=== PATIENT | female | born 1985 | race Caucasian/White ===

== ENCOUNTER 2018-03-09 20:28 | Emergency (ER) | END 2018-03-09 23:40 | disposition home or self-care (01) ==

== ENCOUNTER 2018-08-18 12:43 | Outpatient (CLI) | payer MEDICAID ==
[~2018-08-18] VITALS: Ht 157.5 cm; Wt 95.0 kg
[~2018-08-18 12:43] MED LIST: CEPH500C PO
[2018-08-18 13:00] VITALS: BP 109/68; PULSE 93; Ht 157.5 cm; Wt 95.0 kg
[2018-08-18] MEDS ORDERED: PNV11TAB PO (13:03)
--- NOTE | 2018-08-18 15:36 | TRIAGE ---
OB Triage Datetime Report Generated by CPN: 08/18/2018 15:36 Datetime: 08/18/2018 14:41 Stage of : OB Triage Datetime: 08/18/2018 14:00 Labor Evaluation Frequency: 9-10 Monitor Mode: External Duration (sec)2399: 50-70 Pattern: Normal: <= 5 Contractions in 10 Minutes Resting Tone [place]: Relaxed Heart Rate FHR Baseline Rate: 135 Monitor Mode: External US Variability: Moderate 6-25 bpm Accelerations: 10X10 Decelerations: None Category: Category I Pain Assessment Pain Scale: 4 Pain Presence: Intermittent Pain Type: Cramping Pain Location: Perineum Pain Goal: 3 Pain Relief Measures: Comfort Measures Datetime: 08/18/2018 12:56 Stage of : OB Triage Assessment Type: Triage Maternal Assessment Level of Consciousness: Fully Conscious DTR's/Clonus: DTRs 2+; No Clonus Headache: Denies Blurred Vision: No Respiratory Effort: Unlabored; Regular Rhythm; Equal Expansion Breath Sounds, Left: Clear and Equal Breath Sounds, Right: Clear and Equal Nausea/Vomiting: Denies RUQ Epigastric Pain: Denies Facial Edema: None Temperature Route: Axillary Fall Risk Assessment History of Falling: (0) No Secondary Diagnosis: (0) No Ambulatory Aid: (0) Bedrest/Nurse Assist IV Therapy: (0) No Gait: (0) Normal/Bedrest/Immobile Mental Status: (0) Oriented to Own Ability Fall Score: 0 Fall Risk Score Definition: No Risk: No action required Labor Evaluation Frequency: 0 Monitor Mode: External Pattern: Normal: <= 5 Contractions in 10 Minutes Resting Tone [place]: Relaxed Heart Rate FHR Baseline Rate: 135 Monitor Mode: External US Variability: Moderate 6-25 bpm Decelerations: None Category: Category I Pain Assessment Pain Scale: 4 Pain Presence: Intermittent Pain Type: Cramping Pain Location: Abdomen Pain Goal: 3 Pain Relief Measures: Comfort Measures Datetime: 08/18/2018 12:55 Time of Arrival: 08/18/2018 12:40 EGA: 35.5 Arrived By: Ambulatory Arrived From: Office Chief Complaint: referred from [facility] to r/o labor, denies bleeding, leaking, but has occas uc's Movement: Present Contractions: Occasional Rupture of Membranes: Denies Vaginal Bleeding: None Vaginal Discharge: Present Recent Sexual Intercouse: Denies Abdominal Trauma: Not Applicable Patient Complaints: Cramping Time Provider Notified: 08/18/2018 14:41 Provider Notified: PATRICIO Initial Plan: monitor, BPP, EFW, U/A C_S
--- NOTE | 2018-08-21 00:07 | PN ---
Triage Information Date/Time late entry for serice rendered on 08/18/18 Reason for visit: labor Weeks of Gestation 35w5d /Para A1 Diabetes: none Hypertention: none Additional information X2 previous c/s referred from clinic for R/O PTL Objective Vital Signs Date Temp Pulse Resp B/P (MAP) Pulse Ox O2 O2 Flow FiO2 Time Delivery Rate 08/18/18 98.0 93 109/68 13:00 (82) Heart Rate: 140's Contractions: None Results/Medications Imaging Results BPP 8/8 FREIDA 16.9 EFW 3016 65% Disposition: Discharge Assessment/Plan A IUP 35w5d No PTL P discharge home with routine labor instructions RTH prn NADINE CURRY MD Aug 21, 2018 00:07
== END 2018-08-18 15:00 | disposition home or self-care (01) ==
LOC: OBT 12:43 → L-D 12:43 → OBT 15:00
PROVIDERS: ATTEND Obstetrics & Gynecology
DX: O60.03 Preterm labor without delivery, third trimester (principal); Z3A.35 35 weeks gestation of pregnancy
CPT/HCPCS: 76815; 76818; 81001; 87086; Z7500; G0463

== ENCOUNTER 2018-09-04 12:41 | Inpatient (IN) | payer MEDICAID ==
[~2018-09-04] VITALS: Ht 157.5 cm; Wt 96.3 kg
[~2018-09-04 12:41] MED LIST changes: -CEPH500C PO; +PNV11TAB PO
[2018-09-04 13:27] VITALS: BP 108/64; PULSE 88; Ht 157.5 cm; Wt 96.3 kg
[2018-09-04] MEDS ORDERED: LACTATED RINGER'S 1,000 ML IV ONE (15:51)
[2018-09-04] MEDS ORDERED: LACTATED RINGER'S 1,000 ML IV SCH (15:51)
--- NOTE | 2018-09-04 15:51 | PREAC ---
Date/Time of Note Date/Time of Note DATE: 09/04/18 TIME: 15:50 Anesthesia Eval and Record Evaluation Time Pre-Procedure Interview DATE: 09/04/18 TIME: 15:50 Age 33 Sex female NPO: 8 hrs Preoperative diagnosis intrauterine Planned procedure repeat c section Past Medical History Past Medical History: Includes GI: Obesity : : (4), Para: (2), Gestational age: (38+) Surgery & Anesthesia Issues No known issue Meds Anticoagulation: No Beta Aurelio within 24 hr: No Reason Beta Aurelio not given: Pt. not on B-Aurelio Reported Medications [id number] ( ) 1 Each Tablet, 1 TAB PO DAILY, TAB 08/18/18 Meds reviewed: Yes Allergies Coded Allergies: No Known Drug Allergies (Verified Allergy, Unknown, 03/09/18) Allergies Reviewed: Yes Labs/Studies Labs Reviewed: Reviewed by anesthesiologist test: N/A Pre-procedure Exam Last vitals Vital Signs Date Temp Pulse Resp B/P (MAP) Pulse Ox O2 O2 Flow FiO2 Time Delivery Rate 09/04/18 98.3 88 108/64 13:27 (79) Airway: Adequate mouth opening, Adequate thyromental dist Mallampati: Mallampati II Teeth: Normal Lung: Normal Heart: Normal ASA Physical Status ASA physical status: 2 Emergency: None Planned Anesthetic Neuraxial: Spinal Planned Pain Management Sub-arachniod narcotics, Parenteral pain med Pre-operative Attestations Prior to commencing anesthesia and surgery, the patient was re-evaluated, there was verification of: *The patient's identity *The results of appropriate recent lab work and preoperative vital signs *The above evaluation not changing prior to induction *Anesthetic plan, risk benefits, alternative and complications discussed with patient/family; questions answered; patient/family understands, accepts and wishes to proceed. RIO VICENTE MD September 04, 2018 15:51
[2018-09-04] MEDS ORDERED: CARBOPROST 250 MCG INJ IM PRN ×2 (16:00→19:00)
[2018-09-04] MEDS ORDERED: OXYTOCIN 30 UNITS/LR 500 ML IV PRN ×2 (16:00→19:00)
[2018-09-04] MEDS ORDERED: CITRIC ACID/NA CITRATE 30 ML CUP PO ONE (16:00)
[2018-09-04] MEDS ORDERED: METOCLOPRAMIDE 10 MG INJ IV ONE (16:00)
[2018-09-04] MEDS ORDERED: MISOPROSTOL 200 MCG TAB PR PRN ×2 (16:00→19:00)
[2018-09-04] MEDS ORDERED: FAMOTIDINE 20 MG INJ IV ONE (16:00)
[2018-09-04] MEDS ORDERED: METHYLERGONOVINE 0.2 MG INJ IM PRN ×2 (16:00→19:00)
[2018-09-04] MEDS ORDERED: AMPICILLIN 2 GM/NS (PMX) 100 ML ONE (16:28)
[2018-09-04] MEDS ORDERED: CEFAZOLIN 2 GM/50 ML (PMX) 50 ML IVPB ONE ×2 (16:28→16:30)
[2018-09-04] MEDS ORDERED: AMPICILLIN 2 GM/NS (PMX) 100 ML IVPB ONE (16:30)
--- NOTE | 2018-09-04 16:57 | PREOPHP ---
DATE OF ADMISSION: 09/04/2018 HISTORY OF PRESENT ILLNESS: Ms. Shani Huang is a 33-year-old, 4, para 2, EDC 09/17/2018, intrauterine at 38 weeks and 1 day gestational age, presented to triage complaining of uter ine contractions since last night. Pain scale is 7/10. She has a history of 2 previous C-sections, desires elective repeat delivery with tubal sterilization. She denies any vaginal bleeding or discharge. Her care took place with Dr. Coronado. PAST MEDICAL HISTORY: None. MEDICATIONS: vitamins. PAST SURGICAL HISTORY: x2 previous section. OBSTETRIC HISTORY: x2 previous section. GYNECOLOGIC HISTORY: 12, regular 3 to 4 days. Denies any sexually transmitted infections. Sexually active with 1 partner. SOCIAL HISTORY: Denies any smoking, drugs or alcohol. FAMILY HISTORY: None. REVIEW OF SYSTEMS: All within normal except history of present illness. PHYSICAL EXAMINATION: HEENT: Within normal. LUNGS: CTA bilateral. CARDIOVASCULAR: S1, S2, regular rhythm. ABDOMEN: Gravid, nontender. Negative CVA bilateral. EXTREMITIES: No calf tenderness. PELVIC: Vaginal exam 1 to 2 cm dilated, 50% effaced, -2 station, intact. heart tracing catego ry 1. [place] regular contractions. ASSESSMENT: Intrauterine at 38 weeks and 1 day gestational age, in labor; previous C-secti on x2, desires elective repeat delivery with bilateral tubal sterilization. PLAN: Consent for a repeat delivery with bilateral tubal sterilization. Risks, benefits an d alternatives explained. All questions were answered. Dictated By: KAMRYN CRISOSTOMO/KENNY Conf#: [id number] DID#: [id number]
[2018-09-04] MEDS ORDERED: morphine SULFATE/PF (10 MG/10 ML) INJ ONE (17:16)
[2018-09-04] MEDS ORDERED: ONDANSETRON 4 MG INJ ONE (17:29)
[2018-09-04] MEDS ORDERED: PHENYLephrine (100 MCG/ML) 10ML SYG ONE (17:29)
[2018-09-04] MEDS ORDERED: EPHEDrine 25 MG/5 ML SYG ONE (17:56)
[2018-09-04] MEDS ORDERED: OXYTOCIN 30 UNITS/LR 500 ML IV ONE (17:56)
[2018-09-04] MEDS ORDERED: KETOROLAC 30 MG INJ IV PRN (18:00)
[2018-09-04] MEDS ORDERED: FENTAnyl 50 MCG/ML VIAL IV PRN ×3 (18:00)
[2018-09-04] MEDS ORDERED: DIPHENHYDRAMINE 50 MG INJ IV PRN ×2 (18:00→19:00)
[2018-09-04] MEDS ORDERED: ONDANSETRON 4 MG INJ IV PRN ×2 (18:00→19:00)
[2018-09-04] MEDS ORDERED: HYDROmorphONE 1 MG/5 ML IV SYRINGE IV PRN ×3 (18:00)
[2018-09-04] MEDS ORDERED: EPHEDrine SULFATE 50 MG/5 ML SYG IV PRN (18:00)
[2018-09-04] MEDS ORDERED: PROCHLORPERAZINE 10 MG INJ IV PRN (18:00)
[2018-09-04] MEDS ORDERED: MEPERIDINE 25 MG INJ IV PRN (18:00)
[2018-09-04] MEDS ORDERED: MIDAZOLAM 1 MG/ML 2 ML INJ ONE (18:02)
--- NOTE | 2018-09-04 18:31 | OPPN ---
Date/Time of Note Date/Time of Note DATE: 09/04/18 TIME: 18:25 Operative Report Planned Procedure Procedure date September 04, 2018 Procedure(s) Repeat low transverse CD with bilateral tubal ligation (randolph method) Performed by see signature line Broth Mixer: DENILSON HENRY M.D. 2nd Broth Mixer none Anesthesiologist: RIO VICENTE MD Pre-procedure diagnosis Intrauterine at 38 weeks and 1 day gestational age, in labor; previous x2, desires elective repeat delivery with bilateral tubal sterilization [id number] Anesthesia Type: Irryy8a spinal Post-Procedure Post-procedure diagnosis same Findings a viable male 8/9 weight 8lb 14 oz. normal uterus tubes and ovaries Estimated Blood Loss: 500 - 600 mls (500) Specimen(s) portion of right and left fallopian tube Grafts/Implant(s) none Complication(s) none KAMRYN HOLLIDAY MD September 04, 2018 18:31
--- NOTE | 2018-09-04 18:37 | PAC ---
Date/Time of Note Date/Time of Note DATE: 09/04/18 TIME: 18:36 Post-Anesthesia Notes Post-Anesthesia Note Last documented vital signs Vital Signs Date Temp Pulse Resp B/P (MAP) Pulse Ox O2 O2 Flow FiO2 Time Delivery Rate 09/04/18 98.3 88 108/64 13:27 (79) Activity: WNL Respiratory function: WNL Cardiovascular function: WNL Mental status: Baseline Pain reasonably controlled: Yes Hydration appropriate: Yes Nausea/Vomiting absent: Yes Comments BP: 105/60 HR: 76 RR: 15 T: 97.3 SaO2: 98% RIO VICENTE MD September 04, 2018 18:37
[2018-09-04] MEDS: OXYTOCIN 30 UNITS/LR 500 ML IV SCH (18:38)
[2018-09-04] MEDS ORDERED: NACL 0.9% 3 ML SYG IV SCH (19:00)
[2018-09-04] MEDS ORDERED: ZOLPIDEM 5 MG TAB PO PRN (19:00)
[2018-09-04] MEDS ORDERED: LANOLIN HPA 1 PKT TOP PRN (19:00)
[2018-09-04] MEDS ORDERED: HYDROmorphONE 0.5 MG/0.5 ML SYG IV PRN ×2 (19:00)
[2018-09-04] MEDS ORDERED: NALOXONE (0.4 MG/ML) INJ IV PRN (19:00)
[2018-09-04] MEDS ORDERED: OXYCODONE/ACETAMINOPHEN (5/325) TAB PO PRN (19:00)
[2018-09-04 20:50] VITALS: BP 105/58; PULSE 74; RESP 18
[2018-09-04] MEDS: CEFAZOLIN 2 GM/50 ML (PMX) 50 ML IVPB SCH (23:35)
[2018-09-04 23:40] VITALS: BP 107/60; PULSE 79; RESP 18
[2018-09-05] MEDS: OXYTOCIN 30 UNITS/LR 500 ML IV SCH (01:58)
[2018-09-05 03:40] VITALS: BP 99/58; PULSE 82; RESP 18
[2018-09-05] MEDS: CEFAZOLIN 2 GM/50 ML (PMX) 50 ML IVPB SCH ×2 (06:53→14:26)
[2018-09-05 08:30] VITALS: BP 97/57; PULSE 82; RESP 18
[2018-09-05] MEDS: KETOROLAC 30 MG INJ IV PRN ×2 (08:31→17:12)
--- NOTE | 2018-09-05 09:28 | OPR ---
DATE OF OPERATION: 09/05/2018 PREOPERATIVE DIAGNOSIS: Intrauterine at 38 weeks gestational age, in labor, previous C-sec tion x2, desires elective repeat delivery with tubal sterilization. POSTOPERATIVE DIAGNOSES: Intrauterine at 38 weeks gestational age, in labor, previous C-se ction x2, desires elective repeat delivery with tubal sterilization. OPERATION PERFORMED: Repeat low transverse delivery with bilateral tubal ligation, [place] method. SURGEON: Rio Holliday M.D. FLEXIBLE MACHINING SYSTEM MACHINIST: Dr. Pope. ANESTHESIA: Spinal. ESTIMATED BLOOD LOSS: 500 mL. SPECIMEN: Portion of the right and left fallopian tube. FINDINGS: A viable male, 8 and 9 respectively at 1 and 5 minutes, weight 8 pounds 14 ounces. Normal uterus, tubes and ovaries. DESCRIPTION OF PROCEDURE: After explaining the risks, benefits and alternatives, the patient and con sent signed in chart, the patient was taken to the operating room where spinal anesthesia was found t o be adequate. She was then prepared and draped in normal sterile fashion in dorsal supine position with a leftward tilt. A Pfannenstiel skin incision was made with a scalpel and carried to the underl kourtney fascia. The fascia was incised in midline, incision was extended laterally with Sage scissors. The superior aspect of the fascial incision was grasped with curved clamps, elevated and the underly ing rectus muscles dissected off bluntly. Attention was then turned to the inferior aspect of the in cision which in similar fashion was grasped, tented up with curved clamps and the rectus muscles diss ected off bluntly. The rectus muscle was in midline, peritoneum identified, tented up angelica ply with scissors. The peritoneal incision was extended superiorly inferiorly with good visualizatio n of bladder. The bladder blade was inserted and the vesicouterine identified, grasped with pickups and entered sharply with Metzenbaum scissors. This incision was extended laterally. Bladder flap cr eated digitally. The bladder blade was reinserted and lower segment incised in transverse fashion wi th a scalpel. The uterine incision was extended laterally. The bladder blade was removed and the in yany's head delivered atraumatically. The nose and mouth were suctioned and cord clamped and cut. T he infant was handed off to awaiting cone examiner. The placenta was then removed. The uterus was ex teriorized and cleared of all clots and debris. The uterine incision was repaired with 1-0 chromic i n a running locked fashion. A second layer of same suture was used for imbrication obtaining excelle nt hemostasis. At this point, the left fallopian tube was grasped with Jen, a 3 cm segment of th e tube was ligated with a free tie of plain gut and excised. Good hemostasis was noted. Similarly, the other fallopian tube was ligated and good hemostasis was noted. The uterus was returned to the a bdomen. The gutters were cleared of all clots. Interceed was applied to the anterior uterus. The p eritoneum and rectus abdominis muscles were reapproximated with 3-0 Vicryl in an interrupted fashion. The fascia was reapproximated with 0 Vicryl in a running fashion. The subcutaneous tissue was reap proximated with 2-0 plain gut in a running fashion. The skin was closed with absorbable ty. Th e patient tolerated procedure well. All counts were correct. The patient was taken to recovery in s table condition. Dictated By: RIO CRISOSTOMO/KENNY Conf#: [id number] DID#: [id number] CC: RIO HOLLIDAY MD;*EndCC*
[2018-09-05 16:00] VITALS: BP 95/50; PULSE 84; RESP 16
[2018-09-05] MEDS ORDERED: IBUPROFEN 600 MG TAB PO SCH (18:00)
--- NOTE | 2018-09-05 18:15 | QN ---
Documentation Comment progress note pod 1 patient seen and evaluated no complaints vs stable afebrile ab dressing clean/dry no distention extremity no edema no calf tenderness a/ sp cd with btl pod 1 stable afebrile p/ iron supplement encourage ambulation KAMRYN HOLLIDAY MD September 05, 2018 18:15
[2018-09-05 19:35] VITALS: BP 102/59; PULSE 86; RESP 18
[2018-09-05] MEDS: FERROUS SULFATE (EC) 325 MG TAB PO SCH (21:09)
[2018-09-06] MEDS: OXYCODONE/ACETAMINOPHEN (5/325) TAB PO PRN ×4 (03:37→21:22)
[2018-09-06 04:35] VITALS: BP 100/60; PULSE 82; RESP 18
[2018-09-06] MEDS: FERROUS SULFATE (EC) 325 MG TAB PO SCH ×2 (08:13→21:20)
[2018-09-06 08:20] VITALS: BP 85/55; PULSE 74; RESP 16
[2018-09-06 16:30] VITALS: BP 95/59; PULSE 67; RESP 17
[2018-09-06 20:45] VITALS: BP 101/53; PULSE 80; RESP 18
--- NOTE | 2018-09-06 22:53 | QN ---
Documentation Comment progress note pod 2 patient seen and evaluated no complaints vs stable afebrile ab c/d/i no distention extremity no edema no calf tenderness a/ sp cd with btl pod 2 stable afebrile p/discharge home tomorrow KAMRYN HOLLIDAY MD September 06, 2018 22:53
--- NOTE | 2018-09-06 22:54 | PD.PPDC ---
SALES REPRESENTATIVE ADDING MACHINES Discharge Instruction Condition Mmclh2Ph Patient Condition: Oogco3l Fair Diet Cyjqk8Is Diet: Vkbpi2d Resume Regular Diet Activity/Restrictions Tjiaw3Fi Activity: Mfqno3w Normal Activity May Shower Hvvma0Vq Restrictions: Aurzo6h No Exercising No Lifting No Driving No Sexual Activity Nothing in the Vagina No Doran No Tampons, douche Follow-up Follow-up with Physician: 2, Week/Weeks Return to clinic for Radba4Bl TANDEM OPERATOR Instructions: Ycqjf5f Fever greater than 101 Chills Worsening abdominal pain Excessive Vaginal Bleeding More than 2 pads per hour Unable to tolerate diet [id number] OB Instructions: Jcedt0m Breast Tenderness Depression Blurried Vision Headache Eayac6Ty Surgical Instructions: Dqaak4i Incisional Drainage Incisional Redness KAMRYN HOLLIDAY MD September 06, 2018 22:54
--- NOTE | 2018-09-07 00:14 | DS ---
DATE OF ADMISSION: 09/04/2018 DATE OF DISCHARGE: 09/07/2018 PRIMARY DIAGNOSIS: Intrauterine at 38 weeks gestational age in labor, previous se ction x2, desires elective repeat delivery with tubal sterilization. PROCEDURE: Repeat low-transverse delivery with bilateral tubal ligation, Lisha method. CONDITION ON DISCHARGE: Stable. ACTIVITY: None per vagina, no heavy lifting x6 weeks. DIET: Regular. MEDICATIONS ON DISCHARGE: 1. Motrin. 2. Iron. 3. Colace. DISCHARGE SUMMARY: Ms. Shani Huang underwent a repeat low-transverse delivery with bilat eral tubal ligation on 09/04/2018. She had a viable male, 8 and 9 respectively at 1 and 5 venita cally, weight of 8 pounds, 14 ounces. She had an uneventful postop day one and two. She was discharge d on postop day three. Her incision is clean, dry, and intact. She is ambulating, tolerating diet, positive flatulence, positive bowel movement. She will follow up in the clinic in two weeks for post /postop care. Dictated By: KAMRYN HOLLIDAY MD ME/NTS Conf#: [id number] DID#: [id number] CC: PATRICIA RENTERIA MD; TELLO STOKES MD;*EndCC*
[2018-09-07 04:00] VITALS: BP 99/62; PULSE 70; RESP 17
[2018-09-07] MEDS: OXYCODONE/ACETAMINOPHEN (5/325) TAB PO PRN ×2 (04:06→09:56)
[2018-09-07 08:30] VITALS: BP 99/64; PULSE 76; RESP 18
[2018-09-07] MEDS: FERROUS SULFATE (EC) 325 MG TAB PO SCH (09:50)
--- NOTE | 2018-09-08 12:36 | DELSUM ---
Delivery Summary A-C Datetime Report Generated by CPN: 09/08/2018 12:36 DELIVERY PERSONNEL Crabbing Machine Operator: Richard, [place] MATERNAL INFORMATION Delivery Anesthesia: Spinal Medications in Delivery: see anesthesia records Delivery QBL (ml): 500 Placenta Cultured: No Maternal Complications: None RN Comments: +gbs, #3 c/s in labor LABOR SUMMARY EDC: 09/17/2018 00:00 No. Babies in Womb: 1 Attempted: No Labor Anesthesia: Intrathecal LABOR INFORMATION Reason for Induction: Not Applicable Onset of Labor: 09/04/2018 05:00 Oxytocin: N/A Group B Beta Strep: Positive Antibiotics # of Doses: 2 Antibiotics Time of Last Dose: 09/04/2018 17:16 Steroids Given: None Reason Steroids Not Administered: Not Applicable MEMBRANES Membranes Rupture Method: Artificial Rupture of Membranes: 09/04/2018 17:45 Length of Rupture (hr): 0.02 Amniotic Fluid Color: Clear Amniotic Fluid Amount: Small Amniotic Fluid Odor: None STAGES OF LABOR Stage 3 hr: 0 Stage 3 min: 2 Total Time in Labor hr: 12 Total Time in Labor min: 48 CSECTION DELIVERY Primary Indication: Other Other Primary Indication: prev. c/s in labor CSection Urgency: Emergency CSection Incidence: Repeat Labor: Labor Elective: Nonelective CSection Incision: Lower Uterine Transverse Sterilization Procedure: [place] BABY A INFORMATION Delivery Date/Time: 09/04/2018 17:46 Method of Delivery: Born in Route : No : N/A Forceps: N/A Vacuum Extraction: N/A Shoulder Dystocia : No SHOULDER DYSTOCIA BABY A Delivery Date/Time: 09/04/2018 17:46 PRESENTATION/POSITION BABY A Presentation: Cephalic Cephalic Presentation: Vertex Vertex Position: Right Occipital Anterior Breech Presentation: N/A PLACENTA INFORMATION BABY A Placenta Delivery Time : 09/04/2018 17:48 Placenta Method of Delivery: Manual Removal Placenta Status: Delivered SCORES BABY A Heart Rate 1 min: >100 bpm Resp Effort 1 min: Good Cry Reflex Irritability 1 min: Cough/Sneeze/Pulls Away Muscle Tone 1 min: Active Motion Color 1 min: Blue/Pale Resuscitation Effort 1 min: Tactile Stimulation SCORE 1 MIN: 8 Heart Rate 5 min: >100 bpm Resp Effort 5 min: Good Cry Reflex Irritability 5 min: Cough/Sneeze/Pulls Away Muscle Tone 5 min: Active Motion Color 5 min: Body [place], Extremit Blue SCORE 5 MIN: 9 INFORMATION BABY A Gestational Age at Delivery: 38.1 Gestational Status: Early Term- 37- 38.6 Weeks Outcome : Liveborn Condition : Stable Sex: Male IDENTIFICATION/MEDS BABY A ID Band Number: [id number] ID Band Location: Right Leg; Left Arm Sensor Applied: Yes Sensor Number: [id number] Sensor Location : Cord Clamp WEIGHT/LENGTH BABY A Infant Birthweight (gm): 4035 Infant Weight (lb): 8 Infant Weight (oz): 14 Infant Length (in): 18.50 Length (cm): 46.99 CORD INFORMATION BABY A No. Cord Vessels: 3 Nuchal Cord : N/A Suction: Mouth; Nose ASSESSMENT BABY A Complications: None Physical Findings at Delivery: Within Normal Limits Infant Respirations: Appears Normal Lift Mechanic/ALS Called : No Infant Care By: DONATO BERGER Transferred To: Remains with Mother
== END 2018-09-07 12:35 | disposition home or self-care (01) | DRG 785 ==
LOC: L-D 12:41 → OBT 12:41 → L-D 15:45 → OBT 15:45 → L-D 17:12 → PP1 20:47
PROVIDERS: ADMIT Obstetrics & Gynecology; ATTEND Obstetrics & Gynecology
PROC: 10D00Z1 Extraction of Products of Conception, Low, Open Approach (ICD-10-PCS; principal; 2018-09-05)
PROC: 0UL70ZZ Occlusion of Bilateral Fallopian Tubes, Open Approach (ICD-10-PCS; 2018-09-05)
DX: O34.211 Maternal care for low transverse scar from previous cesarean delivery (principal); Z3A.38 38 weeks gestation of pregnancy; Z37.0 Single live birth; Z30.2 Encounter for sterilization
CPT/HCPCS: 76815; 76818; 85025; 85610; 85730; 86592; 86850; 86900; 86901; 87340; 88302; 99464; G0463; J0290; J0690; J1200; J1885; J2250; J2274; J2370; J2405; J2590; J2765; J7120